=== PATIENT | female | born 1935 | race Two or more races ===

== ENCOUNTER 2021-03-25 09:29 | Emergency (ER) | payer OTHER ==
[~2021-03-25] VITALS: Ht 162.6 cm; Wt 77.1 kg
[2021-03-25] MEDS ORDERED: ACETAMINOPHEN 500 MG TAB PO ONE (10:15)
[2021-03-25 11:00] VITALS: BP 137/47
== END 2021-03-25 11:01 | disposition home or self-care (01) ==
LOC: ER 09:29
DX: M17.11 Unilateral primary osteoarthritis, right knee (principal); M11.261 Other chondrocalcinosis, right knee; M54.31 Sciatica, right side; I10 Essential (primary) hypertension; Z88.2 Allergy status to sulfonamides
CPT/HCPCS: 73562; 93971